=== PATIENT | male | born 1985 | race Hispanic/Latino ===

== ENCOUNTER 2020-04-14 07:05 | Day surgery (SDC) | payer OTHER ==
[2020-04-08 14:57] LABS: Absolute Lymphocytes (CBC) 2.1 K/uL (0.7-4.9); Basophils % 0.7 % (0-1.3); Hematocrit 40.6 % (39.6-49.0); MPV 9.9 fL (7.6-11.3); RBC Red Blood Cell Count 4.85 M/uL (4.33-5.43)
[2020-04-08 15:00] LABS: Protime INR 1.02
[2020-04-08 15:18] LABS: Potassium 4.1 mmol/L (3.5-5.1)
[~2020-04-14 07:05] MED LIST: AMPICILLIN SODIUM 2 GM in NA CHLORIDE 0.9% 100 ML IVPB ONE
--- OUTSIDE RECORDS SUMMARY | 2020-04-14 07:08 | XMS REPORT ---
:1985 Author Organization [facility] Address [address] [facility] [address] [place] [address] Care Team Providers Name Role Phone Shad Rod Unavailable [phone] PROBLEMS Type Condition ICD9-CM Code [id number] Code Onset Condition SNOMED Co de Notes Dates Status Problem Posthitis N47.7 Active 21354016 Problem Phimosis N47.1 Active 949057811 Problem Penis pain N48.89 Active 19302753 ALLERGIES No Known Allergies ENCOUNTERS from 1986 to 2020-03-26 Encounter Location Date Provider Diagnosis [place] [address] [facility] Mar, Shad Rod Phimosis N47.1 and Specialty/Urology [address] [facility] [address] [place] [id number] IMMUNIZATIONS No Information SOCIAL HISTORY Tobacco Use: Social History Observation Description Date Details (start date - stop date) Never Smoker Sex Assigned At : Social History Observation Description Sex Assigned At Unknown Alcohol Screen Question Answer Notes Did you have a drink containing alcohol in the past year? No Points 0 Interpretation Negative Tobacco Use/Smoking Question Answer Notes Are you a never smoker REASON FOR REFERRAL No Information VITAL SIGNS Height 70 in Mar, Weight 258.6 lbs Mar, Temperature 98.3 degrees Fahrenheit Mar, BMI 37.1 kg/m2 Mar, Oximetry 97 % Mar, Blood pressure systolic 135 mm Hg Mar, Blood pressure diastolic 93 mm Hg Mar, MEDICATIONS Medication SIG (Take, Route, Start Date End Date Status Frequency, Duration) Vitamin D3 [id number] UNIT/GM as directed oral 1 tab Active weekly Atorvastatin Calcium 10 MG 1 tablet Orally Once a day Active Metformin HCl 500 MG 1 tablet with a meal Active Orally Once a day Clotrimazole-Betamethasone 1 application Externally Mar, Apr, Active 1-0.05 % Twice a day for 42 days Fish Oil 1000 MG 1 capsule Orally Once a Active day Alive Mens Energy - as directed Orally Ac tive Zyrtec Allergy 10 MG 1 tablet Orally Once a day Active Testosterone Cypionate 200 1 ml Intramuscular Active MG/ML PROCEDURES No Information RESULTS No Results REASON FOR VISIT surgical clearance, phimosis MEDICAL (GENERAL) HISTORY Type Description Date Medical History diabetes Medical History hypogonadism Medical History high cholesterol Hospitalization History 12/23/2019 Goals Section No Information Health Concerns No Information MEDICAL EQUIPMENT No Information MENTAL STATUS No Information FUNCTIONAL STATUS No Information ASSESSMENTS Encounter Date Diagnosis Notes Mar, Posthitis (ICD-10 - N47.7) Mar, Phimosis (ICD-10 - N47.1) PLAN OF TREATMENT Medication Medication Name Sig Start Date Stop Date Clotrimazole-Betamethasone 1 application Externally Twice MarApr, 1-0.05 % a day for 42 days Treatment Notes Test Name Order Date URINALYSIS AUTO W/O SCOPE (21104) 2020-03-26 Next Appt Details Provider Name:Shad Rod 2020-04-14 08:30:00 AM, [address] [place] [address], [phone], Provider Name:Shad Rod 2020-04-27 09:00:00 AM, [address] [place] [address], [id number], Insurance Providers Payer Name Payer Payer Insured Name Patient Coverage Covera End Address Phone Relationship to Start Date Jose Raul e Insured [employer] [phone] Victoriano Muñoz self [id number] [address] [address]
--- OUTSIDE RECORDS SUMMARY | 2020-04-14 07:08 | XMS REPORT | Continuity of Care Document ---
:1985 Author Organization [facility] t Address [address] [place] [address] [address] [place] [address] Care Team Providers Name Role Phone Unavailable Unavailable Unavailable Problems This patient has no known problems. Allergies, Adverse Reactions, Alerts This patient has no known allergies or adverse reactions. Medications This patient has no known medications. Procedures This patient has no known procedures. Encounters Start End Encounter Admission Attending Care Care Encounter Source Date/Time Date/Time Type Type Clinicians Facility Department ID 2020-03-26 2020-03-26 Outpatient [facility] [id number] [facility] [address] 00:00:00 00:00:00 Omar Byrd ent Clinics Results This patient has no known results.
[2020-04-14] MEDS ORDERED: NA CHLORIDE 0.9% 1,000 ML ONE (07:42)
[2020-04-14 07:51] VITALS: O2SAT 97
[2020-04-14] MEDS ORDERED: LIDOCAINE 1% MPF 30 ML VIAL ONE ×2 (07:58→09:25)
[2020-04-14] MEDS ORDERED: BUPIVACAINE 0.25% PF 10 ML VIAL ONE ×2 (07:58→09:24)
[2020-04-14] MEDS ORDERED: LIDOCAINE 1% MPF 5 ML VIAL ONE (08:55)
[2020-04-14] MEDS ORDERED: propofoL 200 MG/20 ML VIAL IV ONE ×3 (08:55→10:13)
[2020-04-14] MEDS ORDERED: FENTANYL CITR 100 MCG/2 ML ONE (08:55)
[2020-04-14] MEDS ORDERED: MIDAZOLAM HCL 2 MG/2 ML INJ ONE (08:55)
[2020-04-14] MEDS: BACITRACIN OINTMENT 15 GM TUBE TOP ONE ×3 (09:15→10:20)
[2020-04-14] MEDS ORDERED: KETOROLAC 30 MG/ML INJ ONE (09:27)
[2020-04-14] MEDS ORDERED: HYDROCODONE/APAP 5/325 MG TAB ONE (11:01)
[2020-04-14 11:10] VITALS: BP 113/76; TEMP 97.1
--- NOTE | 2020-04-14 11:56 | OP ---
Surgeon: ANAYELI VALENZUELA Preoperative Diagnoses: 1. Phimosis. 2. Recurrent balanoposthitis. Postoperative Diagnoses: 1. Phimosis. 2. Recurrent balanoposthitis. Principal Procedure: Sleeve circumcision. Indication For Procedure: Mr. Nevarez presented to the Urology Clinic with complaints of recurrent balanoposthitis and phimosis. He had tried creams on multiple prior occasions and despite this, continued to have recurrent inflammation/infection of the foreskin. As a result, he elected to proceed with elective circumcision. Procedure In Detail: The patient was consented in the preoperative holding area before being transferred to the operative suite where sedation was provided in addition to a penile block using a 50:50 mixture of 0.25% Marcaine and 1% lidocaine, approximately 30 cc of the mixture was instilled in the region of the neurovascular bundles bilaterally. Since upon initial injection in the infrapubic space, the dorsal venous complex was accessed and efforts to instill there were thwarted. Once this was completed after his genitalia had been prepped and draped in standard fashion using Betadine, the procedure was then initiated. Demarcating a line in the foreskin, preputial margin approximately 3 cm in length and an additional matteo at the booker of the glans within the shaft skin, the skin was incised circumferentially and the intervening tissue was then divided in the anterior midline and removed sharply using electrocautery taking care to fulgurate all bleeding vessels. Once the foreskin was removed, a careful search for bleeding was undertaken, and any and all bleeding vessels were pinpoint fulgurated using Adson forceps and electrocautery. Once the area was completely hemostatic, it was irrigated copiously, and additional search for bleeding was undertaken. Any additional bleeding vessels were also fulgurated. Once this was done, I then turned my attention to the reconstruction. Initially, using quadrant sutures of 3-0 chromic suture dipped in bacitracin, I applied a suture anteriorly for dorsally, ventrally, and in the 3 o'clock and 9 o'clock position. I then performed a running horizontal mattress suture of the intervening tissue between the quadrants. Once this was done, I reassessed the cosmetic result and there was some left lateral tilt to the glans. As a result, I reassessed the preputial margin left behind, which was slightly longer on the right lateral side of the penis than it was on the left, so the extra tissue on the right was excised to make the margin absolutely equivalent on both sides, and this did decrease the leftward glans tilt. The intervening skin was again sewn together using a running horizontal mattress suture of 3-0 chromic. I then reassessed and with some persisting glans tilt noted at this point due to the frenulum, I sharply took down the frenulum partially using electrocautery until the significant glans tilt observed was no longer apparent. In the end, the cosmetic result was excellent and there was complete hemostasis. I then applied wet and dry to cleanse the area before applying bacitracin to the suture line and a Judah and Coban for gentle pressure dressing. The patient tolerated the procedure well and without complications and in fact was somewhat awake and speaking with us for the end of the procedure. He was then transferred to a stretcher and then to the recovery room in good condition. Complications: None. Discharge Disposition: He will be discharged with a prescription for [place] 5 mg for pain and was instructed to apply bacitracin to the incision line and the glans at least twice a day, taking care to avoid tub baths, pools, hot tubs or beaches until the skin has completely healed. He was already informed of the need to avoid sexual activity for likely 4-6 weeks. JONY/DA Voice ID: [id number] Report ID: [id number] PAULINO
== END 2020-04-14 11:20 | disposition home or self-care (01) ==
LOC: OR 07:05
PROVIDERS: ATTEND Urology
PROC: 0VTTXZZ Resection of Prepuce, External Approach (ICD-10-PCS; principal; 2020-04-14 08:15)
DX: N47.1 Phimosis (principal); N47.7 Other inflammatory diseases of prepuce; E11.9 Type 2 diabetes mellitus without complications; I10 Essential (primary) hypertension; Z20.828 Contact with and (suspected) exposure to other viral communicable diseases; Z79.84 Long term (current) use of oral hypoglycemic drugs; E29.1 Testicular hypofunction
CPT/HCPCS: 93005; 85025; 80048; 36415; 85610; 82947; 88304; 85730; 54161; U0002; J2704 ×3; J2250; J3010; J7030; J0290